=== PATIENT | female | born 1965 | race American Indian/Alaskan Native ===

== ENCOUNTER 2020-10-10 17:42 | Emergency (ER) | payer OTHER ==
--- NOTE | 2020-10-10 19:47 | XRay Report ---
CLINICAL DATA: neck pain TECHNICAL DATA: AP, lateral, and odontoid views of the cervical spine were obtained. FINDINGS: The vertebral body heights are within normal limits. Intervertebral disc space narrowing C4-C5 and C5 -C6 with anterior osteophytes are noted IMPRESSION: Normal alignment without evidence of fracture. Degenerative changes as noted. MR may be of benefit fo r further evaluation Signer Name: Macario Howard MD Signed: 10/10/2020 7:42 PM Workstation Name: [id number]
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
[2020-10-10 21:26] VITALS: BP 142/90
== END 2020-10-10 21:26 | disposition home or self-care (01) ==
LOC: ED 17:42
DX: S16.1XXA Strain of muscle, fascia and tendon at neck level, initial encounter (principal); S39.012A Strain of muscle, fascia and tendon of lower back, initial encounter; I10 Essential (primary) hypertension; Z79.899 Other long term (current) drug therapy; Z88.8 Allergy status to other drugs, medicaments and biological substances; V49.49XA Driver injured in collision with other motor vehicles in traffic accident, initial encounter; Y93.89 Activity, other specified; Y92.410 Unspecified street and highway as the place of occurrence of the external cause; Y99.8 Other external cause status
CPT/HCPCS: 72040; 72100